=== PATIENT | female | born 1980 | race Caucasian/White ===

== ENCOUNTER 2020-04-30 19:43 | Outpatient (REF) | payer OTHER, SELFPAY ==
[2020-04-30 21:02] LABS: SARS COV2 PCR INHOUSE NEGATIVE (Negative)
== END 2020-04-30 19:44 | disposition home or self-care (01) ==
LOC: HO.LAB 19:43
PROVIDERS: Visit Provider Internal Medicine
DX: Z20.828 Contact with and (suspected) exposure to other viral communicable diseases (principal)
CPT/HCPCS: U0003

== ENCOUNTER → 2020-05-20 15:06 | Outpatient (BNVA) | payer OTHER, SELFPAY | PROVIDERS: PCP Family Medicine; Visit Provider Internal Medicine | DX: Z13.89 Encounter for screening for other disorder (principal) | CPT/HCPCS: 99201 ==

== ENCOUNTER 2020-06-15 15:00 | Outpatient (RCR) | payer OTHER, SELFPAY ==
--- NOTE | 2020-06-04 16:27 | MHC.PT.EP ---
[facility] [place] Office [place] Office [place] Office [address] Nadir Spence [address] [phone] F: [phone] F: [phone] F: [phone] F: [phone] Physical Therapy Plan of Care Date of Evaluation: 06/04/20 Date of Surgery: NA Diagnosis: Assessment: Pt IS 40 YO F REFERRED TO PT FROM WITH CERVICAL AND R SHLDER STRAIN. 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 PRESENTS WITH DECREASED ROM (CAPSULAR PATTERN) AND STRENGTH R SHLDER WITH +IMPINGEMENT, +TTP R UT/ANT AND LAT SHLDER WITH (-) DROP ARM (ALTHOUGH SLIGHT STRUGGLE TO MAINTAIN ABD POSITION. Pt MAY HAVE RC TEAR. SHOULD BENEFIT FROM PT, IF NO CHANGES IN ROM/PAIN MAY BENEFIT FROM ORTHO CONSULT/CORTISONE INJECTION, MRI..FU WITH ON JUN 18 Frequency and Duration: The patient will be seen 2X/WK X 8 WKS Short Term Goals: 1. I HEP WITH DC EX PLAN 2. INCREASED AWARENESS POSTURE AND SHLDER CARE 3. INCREASED R SHLDER ROM 20 DEGREES T/O Senior Care Goals: 1.INCREASED R SHLDER ROM FLEX TO 160, ABD TO 160, ER TO 45 AT 90 DEGREES ABD 2. INCREASED R SHLDER STENGTH AT LEAST 1 MM GRADE 3.DECREASED R SHLDER PAIN AT LEAST 50% WITH ADLS 4. IMPROVED SPADI Treatment Plan: Modalities to reduce pain, spasms and effusion. Manual therapy to restore motion and function. Therapeutic exercise to improve strength and flexibility. Neuromuscular re-education for posture and balance. Therapeutic activities to return to functional activities of daily living. Please sign and return to therapist. Thank you for your referral.
--- NOTE | 2020-10-23 10:03 | MHC.PT.DC ---
[facility] [place] Office [place] Office [place] Office [address] Nadir Spence [address] [phone] F: [phone] F: [phone] F: [phone] F: [phone] Physical Therapy Discharge Report Diagnosis: STRAIN NECK AND R SHOULDER Date of Surgery: NA Date of Evaluation: 06/04/20 Date of Discharge: 06/15/20 Treatments to Date: 3 Cancellations to Date: 3 No Shows to Date: 0 Discharge Status: Patient Elected to Stop Discharge Summary: Pt LAST SEEN ON 06/15/20. PER THE ASSESSMENT FROM THAT NOTE: 06/08 ? ORTHO CONSULT/CORTISONE INJECTION, MRI..FU WITH WC ON JUN 18 Pt. unable to jenae gentle iso IR/ER. pt experienced hand numbness with towel roll SH ER sub max isometrics D/C today at 3 reps. Assess E-Stim and TET next session. BY LOLITA SCHWAB SOFTWARE QUALITY ENGINEER. Pt THEN CANCELLED HER LAST 2 SCHEDULED APPTS Electronically signed by: ARELI RAE PT Please sign and return to therapist. Thank you for your referral.
== END 2020-10-23 10:05 | disposition other institution (70) ==
LOC: HO.PT 15:00
PROVIDERS: PCP Family Medicine; Visit Provider Internal Medicine
DX: S16.1XXD Strain of muscle, fascia and tendon at neck level, subsequent encounter (principal); S46.811D Strain of other muscles, fascia and tendons at shoulder and upper arm level, right arm, subsequent encounter
CPT/HCPCS: 97014; 97110; 97162

== ENCOUNTER → 2020-06-18 15:29 | Outpatient (BNVA) | payer OTHER, SELFPAY | PROVIDERS: PCP Family Medicine; Visit Provider Internal Medicine | DX: Z79.3 Long term (current) use of hormonal contraceptives (principal) | CPT/HCPCS: 99213 ==

== ENCOUNTER 2020-06-28 12:55 | Outpatient (REF) | payer OTHER, SELFPAY ==
--- NOTE | 2020-06-28 12:58 | MR_ITS ---
EXAMINATION: MR SHOULDER WITHOUT CONTRAST, RIGHT CLINICAL INFORMATION: Right shoulder pain COMPARISON: None TECHNIQUE: MRI of the shoulder without contrast was performed on a high-field scanner. FINDINGS: ROTATOR CUFF: Supraspinatus: There is a focal area of slightly lobulated low T1 and T2 signal along the bursal side of the anterior leading edge of the supraspinatus the tendon. There is minimal heterogeneity in the surrounding tendon in this area. This is most compatible with calcific tendinosis. Infraspinatus: There is also less prominent but similar findings noted along the infraspinatus tendon insertion. There is some heterogeneity of the middle one third portion of the supraspinatus tendon compatible tendinosis and perhaps small areas of interstitial intrasubstance partial tearing but no measurable defect or tendon retraction. See coronal image 11 normal. Remaining rotator cuff muscles and tendons are normal. BICEPS: Normal. CORACOACROMIAL ARCH: The undersurface of the acromion is curved with no subacromial spur. The acromioclavicular joint is normal. Bursa: Trace fluid in subacromial subdeltoid bursa anteriorly LABRUM/CAPSULE: Ulcer labrum is small. However the surface appears smooth without abnormal signal. This could reflect chronic degenerative tear or normal variation. GLENOHUMERAL JOINT/MARROW: Normal. 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 Additional abnormality of the middle one third portion of the supraspinatus tendon compatible with tendinosis and minimal intrasubstance partial tearing. No measurable defect or tendon retraction. Mild subacromial subdeltoid bursitis. Small posterior labrum which could reflect normal variation or chronic degenerative tearing.
== END 2020-06-28 12:56 | disposition home or self-care (01) ==
LOC: HO.MRI 12:55
PROVIDERS: Visit Provider Internal Medicine
DX: M25.511 Pain in right shoulder (principal)
CPT/HCPCS: 73221

== ENCOUNTER → 2020-07-06 10:39 | Outpatient (BNVA) | payer OTHER, SELFPAY | PROVIDERS: PCP Family Medicine; Visit Provider Internal Medicine | DX: Z13.89 Encounter for screening for other disorder (principal) | CPT/HCPCS: 99213 ==

== ENCOUNTER 2020-07-14 10:28 | Outpatient (REF) | payer OTHER, SELFPAY ==
[2020-07-14 10:45] LABS: COVID-19 Test Negative (Negative)
== END 2020-07-14 10:29 | disposition home or self-care (01) ==
LOC: HO.EMPCOV 10:28
PROVIDERS: Visit Provider Internal Medicine
DX: Z20.822 Contact with and (suspected) exposure to COVID-19 (principal)
CPT/HCPCS: 36415; 87635; C9803

== ENCOUNTER → 2020-08-06 15:39 | Outpatient (BNVA) | payer OTHER, SELFPAY | PROVIDERS: PCP Family Medicine; Visit Provider Advanced Practice Midwife ==

== ENCOUNTER → 2020-08-17 11:30 | Outpatient (BNVA) | payer OTHER, SELFPAY | PROVIDERS: PCP Family Medicine; Visit Provider Internal Medicine | DX: Z79.3 Long term (current) use of hormonal contraceptives (principal) | CPT/HCPCS: 99213 ==

== ENCOUNTER → 2020-09-16 08:34 | Outpatient (BNVA) | payer OTHER, SELFPAY | PROVIDERS: PCP Family Medicine; Visit Provider Advanced Practice Midwife ==

== ENCOUNTER → 2020-09-28 15:06 | Outpatient (BNVA) | payer OTHER, SELFPAY | PROVIDERS: PCP Family Medicine; Visit Provider Internal Medicine | DX: Z13.89 Encounter for screening for other disorder (principal) | CPT/HCPCS: 99213 ==

== ENCOUNTER → 2020-10-01 13:15 | Outpatient (BNVA) | payer OTHER, SELFPAY | PROVIDERS: Visit Provider Advanced Practice Midwife | DX: Z30.46 Encounter for surveillance of implantable subdermal contraceptive (principal) | CPT/HCPCS: 11981; 11982; 11983; 81025 ==

== ENCOUNTER → 2020-10-29 15:30 | Outpatient (BNVA) | payer OTHER, SELFPAY | PROVIDERS: Visit Provider Internal Medicine | DX: Z13.89 Encounter for screening for other disorder (principal) | CPT/HCPCS: 99213 ==

== ENCOUNTER 2020-11-25 15:00 | Outpatient (RCR) | payer OTHER, SELFPAY ==
--- NOTE | 2021-01-07 08:23 | MHC.PT.DC ---
[facility] [place] Office [place] Office [place] Office [address] Nadir Spence [address] [phone] F: [phone] F: [phone] F: [phone] F: [phone] Physical Therapy Discharge Report Diagnosis: CALCIFIC TENDONITIS OF SHOULDER Date of Surgery: NA Date of Evaluation: 10/26/20 Date of Discharge: Treatments to Date: 9 Cancellations to Date: 0 No Shows to Date: 0 Discharge Status: Improved Function Independent with HEP Discharge Summary: At last attended visit Felicia had demonstrated some increase in strength, improved ROM and some decrease in pain. She was anticipating MD follow up with x-ray or MRI and was to phone with results. We have not heard from her and are DCing at this time. She should be independent with her home program and we recommend continued upper back and posterior cuff strengthening to improve GH positioning and decrease stress on tendon. Electronically signed by: Jocelynn Leblanc PT, DPT Please sign and return to therapist. Thank you for your referral.
== END 2021-01-07 08:24 | disposition home or self-care (01) ==
LOC: HO.PT 15:00
PROVIDERS: PCP Family Medicine; Visit Provider Internal Medicine
DX: M75.31 Calcific tendinitis of right shoulder (principal)
CPT/HCPCS: 97033; 97110; 97112; 97140; 97162

== ENCOUNTER → 2020-12-14 15:04 | Outpatient (BNVA) | payer OTHER, SELFPAY | PROVIDERS: Visit Provider Internal Medicine | DX: Z13.89 Encounter for screening for other disorder (principal) | CPT/HCPCS: 99213 ==

== ENCOUNTER 2021-01-10 08:46 | Outpatient (REF) | payer OTHER, SELFPAY ==
--- NOTE | ~2021-01-10 | MM_ITS ---
EXAMINATION: MM SCREENING DIGITAL BREAST TOMOSYNTHESIS, BILATERAL CLINICAL INFORMATION: Screening. Asymptomatic. No prior breast imaging. Age 40. No known family history breast cancer. The lifetime risk of breast cancer based on the Tyrer-Cuzick Model is 12%. COMPARISON: None (current study represents initial baseline exam). TECHNIQUE: Digital breast tomosynthesis is performed in both the craniocaudal and mediolateral oblique views along with computer-aided detection (CAD). Synthesized 2D images are generated from the tomosynthesis. FINDINGS: There are scattered areas of fibroglandular density (ACR BI-RADS breast composition Category b). There are no significant masses, abnormal calcifications, or other abnormalities. There are scattered bilateral benign appearing round calcifications. The axilla and skin contours are unremarkable. MM/MM tomosynthesis screening BI IMPRESSION: No mammographic evidence of malignancy. ASSESSMENT: BI-RADS 2: Benign RECOMMENDATION: Routine annual mammography screening. This patient's information was entered into a reminder system with a target due date for their next mammogram.
== END 2021-01-10 08:47 | disposition home or self-care (01) ==
LOC: HO.MAMMO 08:46
PROVIDERS: PCP Family Medicine; Visit Provider Advanced Practice Midwife
DX: Z12.31 Encounter for screening mammogram for malignant neoplasm of breast (principal)
CPT/HCPCS: 77063; 77067

== ENCOUNTER → 2021-03-17 15:11 | Outpatient (BNVA) | payer OTHER, SELFPAY | PROVIDERS: PCP Family Medicine; Visit Provider Internal Medicine | DX: Z13.79 Encounter for other screening for genetic and chromosomal anomalies (principal) | CPT/HCPCS: 99213 ==

== ENCOUNTER → 2021-05-10 15:28 | Outpatient (BNVA) | payer OTHER, SELFPAY | PROVIDERS: PCP Family Medicine; Visit Provider Internal Medicine | DX: Z13.89 Encounter for screening for other disorder (principal) | CPT/HCPCS: 99213 ==

== ENCOUNTER 2021-05-18 15:55 | Outpatient (REF) | payer OTHER, SELFPAY ==
[2021-05-18 16:32] LABS: Hematocrit 44.1 % (37.0-47.0); Hemoglobin 14.7 g/dl (12.0-16.0); Mean Corpuscular HGB Conc 33.3 g/dl (31.0-35.0); Mean Corpuscular Hemoglobin 30.2 pg (27.0-33.0); Mean Corpuscular Volume 90.6 fL (80.0-98.0); Mean Platelet Volume 10.4 fL (9.4-12.3); Platelet Count 242 X10*3/uL (160-400); Red Blood Count 4.87 X10*6/uL (4.20-5.50); Red Cell Distribution Width 11.8 % (11.0-16.0); White Blood Count 7.2 X10*3/uL (4.8-10.8)
[2021-05-18 17:13] LABS: TSH reflex Free T4 1.53 uIU/mL (0.32-4.0)
[2021-05-20 21:27] LABS: Thyroid Peroxidase Antibodies <1 IU/mL (<9)
[2021-05-25 15:50] LABS: Thyroid Stimulating Immunoglob <89 % baseline (<140)
== END 2021-05-18 15:56 | disposition home or self-care (01) ==
LOC: HO.LAB 15:55
PROVIDERS: Advanced Practice Midwife; PCP Family Medicine; Visit Provider Ophthalmology
DX: H02.531 Eyelid retraction right upper eyelid (principal); N93.9 Abnormal uterine and vaginal bleeding, unspecified; E04.9 Nontoxic goiter, unspecified
CPT/HCPCS: 36415; 84443; 84445; 85027; 86376

== ENCOUNTER 2021-06-17 08:15 | Outpatient (REF) | payer OTHER, SELFPAY ==
[2021-06-17 08:34] LABS: Binax Internal Control QC Valid; Binax Lot number: 1911; Binax Now Covid-19 Ag Negative (Negative)
== END 2021-06-17 08:16 | disposition home or self-care (01) ==
LOC: HO.LAB 08:15
PROVIDERS: Visit Provider Internal Medicine
DX: Z20.822 Contact with and (suspected) exposure to COVID-19 (principal)
CPT/HCPCS: 36415; C9803

== ENCOUNTER 2021-07-15 20:42 | Outpatient (REF) | payer OTHER, SELFPAY ==
[2021-07-15 21:12] LABS: COVID-19 Test Negative (Negative)
== END 2021-07-15 20:43 | disposition home or self-care (01) ==
LOC: HO.LAB 20:42
PROVIDERS: Referring Provider Internal Medicine; Visit Provider Internal Medicine
DX: Z20.822 Contact with and (suspected) exposure to COVID-19 (principal)
CPT/HCPCS: 87635

== ENCOUNTER → 2021-08-04 15:06 | Outpatient (BNVA) | payer OTHER, SELFPAY | PROVIDERS: PCP Family Medicine; Visit Provider Internal Medicine | DX: Z13.89 Encounter for screening for other disorder (principal) | CPT/HCPCS: 99213 ==

== ENCOUNTER → 2021-11-11 14:43 | Outpatient (BNVA) | payer OTHER, SELFPAY | PROVIDERS: PCP Family Medicine; Visit Provider Internal Medicine | DX: Z13.89 Encounter for screening for other disorder (principal) | CPT/HCPCS: 99213 ==

== ENCOUNTER → 2021-11-29 09:20 | Outpatient (BNVA) | payer OTHER, SELFPAY | PROVIDERS: PCP Family Medicine; Visit Provider Advanced Practice Midwife | DX: Z01.419 Encounter for gynecological examination (general) (routine) without abnormal findings (principal) ==

== ENCOUNTER 2022-03-10 14:23 | Outpatient (REF) | payer OTHER, SELFPAY ==
--- NOTE | ~2022-03-10 | MM_ITS ---
EXAMINATION: MM SCREENING DIGITAL BREAST TOMOSYNTHESIS, BILATERAL CLINICAL INFORMATION: Screening. Asymptomatic. The lifetime risk of breast cancer based on the Tyrer-Cuzick Model is 11%. COMPARISON: Mammography: 01/10/2021 (baseline). TECHNIQUE: Digital breast tomosynthesis is performed in both the craniocaudal and mediolateral oblique views along with computer-aided detection (CAD). Synthesized 2D images are generated from the tomosynthesis. FINDINGS: There are scattered areas of fibroglandular density (ACR BI-RADS breast composition Category b). There are no significant masses, abnormal calcifications, or other abnormalities. Parenchymal pattern is similar to prior baseline exam. The axilla and skin contours are unremarkable. There are no significant changes. MM/MM tomosynthesis screening BI IMPRESSION: No mammographic evidence of malignancy. ASSESSMENT: BI-RADS 1: Negative RECOMMENDATION: Routine annual mammography screening. This patient's information was entered into a reminder system with a target due date for their next mammogram.
== END 2022-03-10 14:24 | disposition home or self-care (01) ==
LOC: HO.MAMMO 14:23
PROVIDERS: Visit Provider Family Medicine
DX: Z12.31 Encounter for screening mammogram for malignant neoplasm of breast (principal)
CPT/HCPCS: 77063; 77067

== ENCOUNTER → 2022-04-06 15:51 | Outpatient (BNVA) | payer OTHER, SELFPAY | PROVIDERS: PCP Family Medicine; Visit Provider Internal Medicine | DX: Z13.89 Encounter for screening for other disorder (principal) | CPT/HCPCS: 99213 ==

== ENCOUNTER → 2022-09-05 13:25 | Outpatient (BNVA) | payer OTHER, SELFPAY | PROVIDERS: PCP Family Medicine; Visit Provider Internal Medicine | DX: Z13.89 Encounter for screening for other disorder (principal) | CPT/HCPCS: 99213 ==

== ENCOUNTER 2023-01-03 10:18 | Outpatient (REF) | payer OTHER, SELFPAY | END 2023-01-03 10:19 | disposition home or self-care (01) | LOC: HO.LNP 10:18 | PROVIDERS: PCP Family Medicine; Visit Provider Obstetrics & Gynecology | DX: N89.8 Other specified noninflammatory disorders of vagina (principal) | CPT/HCPCS: 0353U; 87480; 87510; 87660 ==

== ENCOUNTER 2023-05-18 15:43 | Outpatient (REF) | payer OTHER, SELFPAY ==
[2023-05-18 16:13] LABS: Estimated Average Glucose 97 mg/dL
[2023-05-18 16:45] LABS: Alanine Aminotransferase 30 U/L (0-31); Albumin Level 4.3 g/dL (3.5-5.0); Alkaline Phosphatase 66 U/L (39-117); Anion Gap 11 (12-20); Aspartate Amino Transferase 32 U/L (5-31); Bilirubin Total 0.7 mg/dL (0.0-1.0); Blood Urea Nitrogen 12 mg/dL (9-16); Calcium 9.1 mg/dL (8.4-10.2); Carbon Dioxide 25 mmol/L (22-29); Chloride 108 mmol/L (96-108); Cholesterol 203 mg/dL (<200); Estimated Glomerular Filt Rate > 60; Glucose Random 90 mg/dL (60-115); HDL Cholesterol 47 mg/dL (>40); LDL Cholesterol Calculated 108 mg/dL (<100); Potassium 3.6 mmol/L (3.3-5.1); Sodium 140 mmol/L (135-145); Total Protein 7.5 g/dL (6.5-8.0); Triglycerides 243 mg/dL (<150)
[2023-05-19 03:41] LABS: HBS Num1 44.31 mIU/mL (0-7.99); ~Hepatitis B Surface Antibody REACTIVE (Nonreactive)
== END 2023-05-18 15:44 | disposition home or self-care (01) ==
LOC: HO.LAB 15:43
PROVIDERS: PCP Family Medicine; Visit Provider Family Medicine
DX: Z13.220 Encounter for screening for lipoid disorders (principal); Z13.1 Encounter for screening for diabetes mellitus; Z01.84 Encounter for antibody response examination
CPT/HCPCS: 36415; 80053; 80061; 83036; 86706

== ENCOUNTER 2023-06-13 14:24 | Outpatient (REF) | payer OTHER, SELFPAY ==
--- NOTE | ~2023-06-13 | US_ITS ---
EXAMINATION: US THYROID CLINICAL INFORMATION: Nontoxic single thyroid nodule. COMPARISON: 10/05/2016 TECHNIQUE: Linear transducer grayscale and color Doppler examination with attention to the region of the thyroid. FINDINGS: SIZE: Measurements of the thyroid lobes and nodules are given in sagittal, anteroposterior and transverse dimensions respectively. Right Thyroid Lobe: 4.0 x 2.1 x 1.9 cm, volume 8.1 mL. Parenchyma: The gland echotexture is homogeneous. Thyroid vascularity is normal. Left Thyroid Lobe: 4.6 x 1.3 x 1.6 cm, volume 4.9 mL. Parenchyma: The gland echotexture is homogeneous. Thyroid vascularity is normal. Isthmus: 0.4 cm in maximum AP dimension. Estimated total number of nodules greater than or equal to 1 cm: 0. Restaurant Attendant nodules are described as follows: 1. Location: Left mid pole. Size: 0.8 x 0.5 x 0.5 cm, volume 0.1 mL. Nodule characteristics: Composition: Solid/almost completely solid (2). Echogenicity: Hypoechoic (2). Shape: Not taller than wide (0). Margins: Smooth (0). Echogenic Foci: None (0). ACR TI-RADS total points: 4 ACR TI-RADS category: 4 2. Location: Left lower pole. Size: 0.5 x 0.2 x 0.4 cm, volume 0.03 mL. Nodule characteristics: Composition: Solid (2). Echogenicity: Hypoechoic (2). Shape: Not taller than wide (0). Margins: Smooth (0). Echogenic Foci: None (0). ACR TI-RADS total points: 4 ACR TI-RADS category: 4 NODES: No lymphadenopathy is seen in the tissue surrounding the thyroid gland. US/US thyroid IMPRESSION: No further routine follow-up is needed. ACR TI-RADS RECOMMENDATION REFERENCE: Ultrasound-guided fine-needle aspiration, followup ultrasound, no further follow up. * TR1 (0 point) and TR2 (2 points): No FNA or follow up. * TR3 (3 points): FNA if more than or equal to 2.5 cm in maximum dimension, followup ultrasound in 1, 3 and 5 years if 1.5 to 2.4 cm in maximum dimension. * TR4 (4-6 points): FNA if more than or equal to 1.5 cm in maximum dimension, followup ultrasound in 1, 2, 3 and 5 years if 1 to 1.4 cm in maximum dimension. * TR5 (more than or equal to 7 points): FNA if more than or equal to 1 cm in maximum dimension, followup ultrasound every year for 5 years if 0.5 to 0.9 cm in maximum dimension. * TR3, TR4 or TR5 nodules that are below the size threshold for followup receive no follow up.
== END 2023-06-13 14:25 | disposition home or self-care (01) ==
LOC: HO.US 14:24
PROVIDERS: PCP Family Medicine; Visit Provider Internal Medicine Endocrinology, Diabetes & Metabolism
DX: E04.1 Nontoxic single thyroid nodule (principal)
CPT/HCPCS: 76536

== ENCOUNTER 2023-06-27 17:19 | Outpatient (REF) | payer OTHER, SELFPAY ==
--- NOTE | ~2023-06-27 | MR_ITS ---
EXAMINATION: MR LUMBAR SPINE WITHOUT CONTRAST CLINICAL INFORMATION: Back pain, worsening radiculopathy. COMPARISON: None available. TECHNIQUE: MRI of the lumbar spine was obtained using routine sequences without contrast. FINDINGS: Straightening of the normal lumbar lordosis. Trace retrolisthesis at L4-L5. No acute bone marrow abnormality. Probable intraosseous hemangioma at L4. The vertebral body heights are preserved. Multilevel disc desiccation and mild disc height loss at L4-L5. The visualized spinal cord is normal in caliber. No abnormal cord signal. The conus medullaris terminates at L1. T12-L1: No significant spinal canal or neural foraminal narrowing. L1-L2: No significant spinal canal or neural foraminal narrowing. L2-L3: No significant spinal canal or neural foraminal narrowing. L3-L4: No significant spinal canal or neural foraminal narrowing. L4-L5: Small diffuse disc bulge abutting the transiting L5 nerve roots bilaterally. No significant spinal canal or neural foraminal narrowing. L5-S1: Diffuse disc bulge. Mild left greater than right neural foraminal narrowing with the disc abutting the exiting L5 nerve roots bilaterally. The paravertebral soft tissues are unremarkable. MR/MR lumbar spine wo con IMPRESSION: Mild degenerative disc disease at L4-L5 and L5-S1. At L4-L5, a small diffuse disc bulge abuts the transiting L5 nerve roots bilaterally. At L5-S1, a disc bulge abuts the exiting L5 nerve roots bilaterally with associated mild left greater than right neural foraminal narrowing. No significant spinal canal stenosis throughout the lumbar spine.
== END 2023-06-27 17:20 | disposition home or self-care (01) ==
LOC: HO.MRI 17:19
PROVIDERS: PCP Family Medicine; Visit Provider Family Medicine
DX: M54.9 Dorsalgia, unspecified (principal); M54.16 Radiculopathy, lumbar region
CPT/HCPCS: 72148

== ENCOUNTER 2023-07-06 15:00 | Outpatient (RCR) | payer OTHER, SELFPAY | END 2023-07-31 11:39 | disposition home or self-care (01) | LOC: HO.PT 15:00 | PROVIDERS: PCP Family Medicine; Visit Provider Family Medicine | DX: M54.50 Low back pain, unspecified (principal); M46.1 Sacroiliitis, not elsewhere classified | CPT/HCPCS: 97012; 97110; 97140; 97161 ==